=== PATIENT | male | born 2005 | race Caucasian/White ===

== ENCOUNTER 2024-06-15 10:56 | Emergency (ER) | payer BC ==
[~2024-06-15] VITALS: Ht 172.7 cm; Wt 61.8 kg
[2024-06-15 10:59] VITALS: TEMP 98.2
[2024-06-15] MEDS ORDERED: Albuterol 0.083% Neb Soln 2.5 MG/3 ML UD IH ONE (15:15)
[2024-06-15 15:27] LABS: BASO % 0.2 % (0.0-2.0); EOS % 0.2 % (0.0-4.0); GRAN # 4.2 K/mm3 (1.4-6.5); GRAN % 70.7 % (42.2-75.2); HEMATOCRIT 47.1 % (42.0-52.0); HEMOGLOBIN 16.1 g/dl (13.5-18.0); LYMPH # 1.4 K/mm3 (1.2-3.4); LYMPH % 22.9 % (20.0-51.0); MEAN CELL VOLUME 89 fl (80.0-100.0); MEAN CORPUSCULAR HEMOGLOBIN 31 pg (27-31); MEAN CORPUSCULAR HGB CONC 34 g/dl (33.0-37.0); MEAN PLATELET VOLUME 10.3 fl (7.4-10.4); MONO # 0.3 K/mm3 (0.1-0.6); MONO % 5.8 % (1.7-9.3); PLATELET COUNT 183 K/mm3 (130-400); RED BLOOD COUNT 5.28 M/mm3 (4.20-5.60); REDCELL DISTRIBUTION WIDTH-CV 12.3 % (11.5-14.5)
[2024-06-15] MEDS ORDERED: Pantoprazole 40 MG in NS 10 ML IV ONE (15:30)
[2024-06-15] MEDS ORDERED: NS 1,000 ML IV ONE (15:30)
[2024-06-15 16:03] LABS: ALANINE AMINOTRANSFERASE 23 U/L (0-55); ALBUMIN 4.4 g/dL (3.5-5.0); ALKALINE PHOSPHATASE 95 U/L (40-150); ANION GAP 11 mmol/L (7-16); AST,SGOT 26 U/L (5-34); BILIRUBIN,TOTAL 0.4 mg/dL (0.2-1.2); BLOOD UREA NITROGEN 15 mg/dL (9-21); CALCIUM 9.3 mg/dL (8.4-10.2); CHLORIDE 109 mEq/L (98-107); CREATININE, serum 0.93 mg/dL (0.72-1.25); GLUCOSE 105 mg/dL (70-99); POTASSIUM 3.7 mEq/L (3.5-4.5); SODIUM 144 mEq/L (136-145); TOTAL PROTEIN 7.7 g/dl (6.2-8.1)
[2024-06-15 16:15] LABS: TROPONIN-I < 0.010 ng/mL (0.00-0.033)
[2024-06-15 16:43] LABS: LIPASE 14 U/L (8-78)
[2024-06-15] MEDS ORDERED: NS 100 ML IV SCH (16:46)
[2024-06-15] MEDS ORDERED: Iohexol 300 - 100 ML VIAL IV ONE (16:46)
[2024-06-15] MEDS ORDERED: ZITHROMAX Z PA250 MG PO (17:49)
[2024-06-15 18:46] VITALS: BP 113/66; PULSE 72
== END 2024-06-15 18:47 | disposition home or self-care (01) ==
LOC: COL.ER 10:56
PROVIDERS: Physician Assistant
DX: J98.4 Other disorders of lung (principal); J45.909 Unspecified asthma, uncomplicated; Z79.51 Long term (current) use of inhaled steroids
CPT/HCPCS: J2470; J7030; Q9967